=== PATIENT | female | born 1985 | race Caucasian/White ===

== ENCOUNTER 2017-04-16 14:07 | Emergency (ER) | payer OTHER ==
[~2017-04-16] VITALS: Ht 157.5 cm; Wt 129.3 kg
--- NOTE | ~2017-04-16 | EKG ---
PATIENT: MAXI RIVAS UNIT #: [id number] Ventricular Rate: 59 BPM Atrial Rate: 59 BPM P-R Interval: 148 ms QRS Duration: 90 ms Q-T Interval: 416 ms QTC Calculation(Bezet): 411 ms P [place]: 37 degrees Calculated R [place]: 71 degrees Calculated T [place]: 34 degrees Diagnosis Line: Sinus bradycardia Diagnosis Line: Cannot rule out Anterior infarct , age Diagnosis Line: undetermined Diagnosis Line: Abnormal ECG Diagnosis Line: When compared with ECG of 06-MAY-2010 17:45, Diagnosis Line: Vent. rate has decreased BY 40 BPM Diagnosis Line: Confirmed by BRIGID ROMAN MD ([id number]) on Diagnosis Line: 04/19/2017 4:04:03 PM INTERPRETING MD: JESSIE BLANCO
[~2017-04-16 14:07] MED LIST: ALBUTEROL; ALBUTEROL17 GM; ALBUTEROL17 GM INH; AMITRIPTYLINE H25 MG; AMOXICILLIN; AUGMENTIN PO; BENICAR20 MG PO; BENTYL20 MG PO; CIPRO; CLARITIN10 M3 PO; FLEXERIL10 MG PO; FLOMAX0.4 M1; FLONASE 0.05% N16 G1; FLOVENT7.9 GM NS; LORTAB 7.5-5001 TAB PO; MULTIVITAMIN1 UDCAP PO; NAPROXEN PO; PERCOCET7.5; PHENERGAN25 M1 PO; PREDNISONE; SENNA S TABLET1 TAB PO; SINGULAIR PO; SYMBICORT IH; SYMBICORT INH; VICODIN 5/500 T1 TAB PO; VOLTAREN75 MG PO; ZITHROMAX PO; ZOFRAN; ZYRTEC PO; [UNRECOGNIZED DRUG - REMARK]
[2017-04-16] MEDS ORDERED: ZYRTEC10 M1 PO (14:38)
[2017-04-16] MEDS ORDERED: PRINIVIL20 M1 PO (14:38)
[2017-04-16 15:21] LABS: BASOPHIL# 0.1 X10e3 (0-0.3); BASOPHIL% 1.4 % (0-2.5); EOSINOPHIL% 0.6 % (0.0-7.0); HEMATOCRIT 38.3 % (35.0-45.0); HEMOGLOBIN 12.6 gm/dL (12.0-16.0); LYMPHOCYTE# 1.5 X10e3 (1.0-3.5); LYMPHOCYTE% 24.5 % (17.0-45.0); MEAN CELL VOLUME 74.1 FL (83-96); MEAN CORPUSCULAR HEMOGLOBIN 24.3 PG (28-34); MEAN CORPUSCULAR HGB CONC 32.9 g/dL (30-36); MEAN PLATELET VOLUME 9.8 FL (6.5-11.5); MONOCYTE# 0.5 X10e3 (0-1.0); MONOCYTE% 7.8 % (3.0-12.0); NEUTROPHIL# 4.1 X10e3 (1.5-7.1); NEUTROPHIL% 65.7 % (40-75); PLATELET COUNT 195 X10e3 (140-420); RED BLOOD COUNT 5.17 X10e (3.90-5.30); RED CELL DISTRIBUTION WIDTH 15.1 % (11.0-15.5); WHITE BLOOD COUNT 6.3 X10e3 (4.0-10.5)
[2017-04-16 15:22] LABS: DIFF IND NO
[2017-04-16 15:39] LABS: BILIRUBIN,TOTAL 0.2 mg/dL (0.2-2.0); BUN/CREATININE RATIO 17.5; CALCIUM SERUM 8.8 mg/dL (8.4-10.2); CREATININE SERUM 0.8 mg/dL (0.6-1.4); GLOM FILT RATE Estimated 97.6 mL/min (>60); POTASSIUM 3.7 mmol/L (3.5-5.1); PROTEIN TOTAL SERUM 6.8 g/dL (6.0-8.3)
[2017-04-16 15:49] LABS: THYROID STIMULATING HORMONE 0.53 uIU/ml (0.34-5.60)
[2017-04-17 00:44] LABS: FREE THYROXIN (T4) 0.71 ng/dL (0.58-1.64)
== END 2017-04-16 17:14 | disposition home or self-care (01) ==
LOC: SED 14:07
PROVIDERS: Emergency Medicine
DX: R55 Syncope and collapse (principal); Z88.1 Allergy status to other antibiotic agents; Z88.2 Allergy status to sulfonamides; Z79.899 Other long term (current) drug therapy
CPT/HCPCS: 36415; 80053; 82947; 84439; 84443; 84703; 85025; 93005; 99284

== ENCOUNTER 2017-04-22 19:46 | Emergency (ER) | payer OTHER ==
[~2017-04-22] VITALS: Ht 157.5 cm; Wt 129.3 kg
--- NOTE | ~2017-04-22 | CT71 ---
[facility] A Service of [facility] RADIOLOGY TEXT RESULTS PATIENT: MAXI RIVAS LOCATION: [facility] : 85 UNIT #: [id number] AGE: [address]: Connor Peguero MD SEX: F ORDER DR: [id number] [place] [id number] [facility]. [place], [place] [address] [id number] E MR#: [id number] #: [id number] NAME: MAXI RIVAS : 1985 SEX: F STUDY DATE/TIME: 04/22/2017 21:43 UNIT: [facility] ROOM: STUDY DESCRIPTION: CT Head Wo Contrast Attending Physician: Connor Peguero M.D. Ordering Physician: Connor Peguero M.D. Primary Care Physician: Lillie Cardenas Aprn MEDICAL IMAGING REPORT This report is preliminary unless electronic signature is present EXAM Head CT no contrast, 04/22/2017 INDICATION 32-year-old female with a syncopal episode, hit head. Head and back pain since April 16. Syncopal episode again today. Hit the back of the head, dizziness. TECHNIQUE Noncontrast CT brain. This CT exam was performed with one or more of the following radiation dose reduction techniques: automatic exposure control, adjustment of mA and/or kV according to patient size, and iterative reconstruction. COMPARISON 08/18/[address] BRAIN: Sulci and ventricles unremarkable. No midline shift. No evidence of acute intracranial hemorrhage. There is no mass, mass effect or edema to suggest acute infarct and no extraaxial fluid collections are present. Globes intact. Bones intact. There is a small retention cyst or polyp in the left maxillary sinus. IMPRESSION 1. No clearly acute intracranial process. No evidence of acute intracranial hemorrhage. 2. Incidental retention cyst or polyp in the left maxillary sinus. Dictated by... Jules Diaz M.D. [facility] A Service of [facility] [place] [place] RADIOLOGY TEXT RESULTS PATIENT: MAXI RIVAS LOCATION: [place] : 85 UNIT #: [id number] AGE: [address]: Connor Peguero MD SEX: F ORDER DR: THIS IS AN ELECTRONICALLY VERIFIED REPORT Jules Diaz M.D. at 04/23/2017 11:28 AM Alanis TD: 04/23/2017 08:03 JOB #: [id number] MEDICAL IMAGING REPORT Page 1 of 1 COPY
--- NOTE | ~2017-04-22 | EKG ---
PATIENT: MAXI RIVAS UNIT #: [id number] Ventricular Rate: 74 BPM Atrial Rate: 74 BPM P-R Interval: 150 ms QRS Duration: 88 ms Q-T Interval: 386 ms QTC Calculation(Bezet): 428 ms P [place]: 38 degrees Calculated R [place]: 69 degrees Calculated T [place]: 28 degrees Diagnosis Line: Normal sinus rhythm Diagnosis Line: Normal ECG Diagnosis Line: Diagnosis Line: Confirmed by MACIEL PRUITT MD ([id number]) on 04/23/2017 Diagnosis Line: 4:52:40 PM INTERPRETING MD: EDMOND BLANCO
--- NOTE | ~2017-04-22 | CR72 ---
[facility] A Service of [facility] RADIOLOGY TEXT RESULTS PATIENT: MAXI RIVAS LOCATION: [facility] : 85 UNIT #: [id number] AGE: [address]: Connor Peguero MD SEX: F ORDER DR: [id number] [facility] [address] [facility]. [place], [place] [address] [id number] E MR#: [id number] Acc #: [id number] NAME: MAXI RIVAS : 1985 SEX: F STUDY DATE/TIME: 04/22/2017 20:52 UNIT: [facility] ROOM: STUDY DESCRIPTION: CR Chest Single View Portable Attending Physician: Connor Peguero M.D. Ordering Physician: Connor Peguero M.D. Primary Care Physician: Lillie Cardenas Aprn MEDICAL IMAGING REPORT This report is preliminary unless electronic signature is present EXAM Frontal chest, 04/22/2017 INDICATIONS 32-year-old female with a history of syncopal episode 6 days ago, shortness of air with activity; symptoms began 6 days ago, as well. Hypertension. TECHNIQUE Frontal chest compared with 08/05/2012. FINDINGS Cardiac silhouette is within normal limits. Vascularity normal. Lung volumes are low but the lungs are clear. No pneumothorax. IMPRESSION 1. Low lung volumes, otherwise negative frontal chest. Dictated by... Jules Diaz M.D. THIS IS AN ELECTRONICALLY VERIFIED REPORT Jules Diaz M.D. at 04/23/2017 11:28 AM Maral TD: 04/23/2017 03:41 JOB #: [id number] MEDICAL IMAGING REPORT Page 1 of 1 COPY
[~2017-04-22 19:46] MED LIST changes: +PRINIVIL20 M1 PO; +ZYRTEC10 M1 PO
[2017-04-22 21:00] LABS: BASOPHIL# 0.1 X10e3 (0-0.3); BASOPHIL% 0.7 % (0-2.5); EOSINOPHIL# 0.1 X10e3 (0-0.7); EOSINOPHIL% 1.4 % (0.0-7.0); HEMATOCRIT 39.6 % (35.0-45.0); HEMOGLOBIN 12.7 gm/dL (12.0-16.0); LYMPHOCYTE# 2.2 X10e3 (1.0-3.5); LYMPHOCYTE% 21.9 % (17.0-45.0); MEAN CELL VOLUME 74.6 FL (83-96); MEAN CORPUSCULAR HGB CONC 32.2 g/dL (30-36); MEAN PLATELET VOLUME 9.9 FL (6.5-11.5); MONOCYTE# 0.7 X10e3 (0-1.0); MONOCYTE% 7.3 % (3.0-12.0); NEUTROPHIL# 6.9 X10e3 (1.5-7.1); NEUTROPHIL% 68.7 % (40-75); PLATELET COUNT 198 X10e3 (140-420); RED CELL DISTRIBUTION WIDTH 14.7 % (11.0-15.5); WHITE BLOOD COUNT 10.1 X10e3 (4.0-10.5)
[2017-04-22 21:03] LABS: DIFF IND NO
[2017-04-22 21:03] LABS: POC - CKMB 1.2 ng/mL (0.0-7.9); POC - TROPONIN <0.05 ng/mL (<=0.05)
[2017-04-22 21:12] LABS: URINE SOURCE CLEAN CATCH
[2017-04-22 21:20] LABS: URINE APPEARANCE CLEAR; URINE BILIRUBIN NEG (NEG); URINE BLOOD NEG (NEG); URINE COLOR YELLOW; URINE GLUCOSE NEG (NEG); URINE KETONE NEG (NEG); URINE LEUKOCYTE ESTERASE NEG (NEG); URINE NITRATE NEG (NEG); URINE PH 5.5 (5-8); URINE PROTEIN NEG (NEG); URINE SPECIFIC GRAVITY 1.021 (1.003-1.035); URINE UROBILINOGEN 0.2 MG/DL (NEG)
[2017-04-22 21:22] LABS: ALBUMIN SERUM 4.3 g/dL (3.5-5.0); ALCOHOL BLOOD <5 mg/dL ([, 0]); ALKALINE PHOSPHATASE 60 U/L (32-92); ALT (SGPT) 14 U/L (10-40); AST (SGOT) 17 U/L (10-42); BILIRUBIN, DIRECT <0.1 mg/dL (0.0-0.2); BILIRUBIN,INDIRECT 0.3 mg/dL (0.0-0.9); BILIRUBIN,TOTAL 0.4 mg/dL (0.2-2.0); BLOOD UREA NITROGEN 15 mg/dL (9-23); BUN/CREATININE RATIO 18.75; CALCIUM SERUM 9.4 mg/dL (8.4-10.2); CARBON DIOXIDE 28 mmol/L (22-31); CHLORIDE 105 mmol/L (100-111); CREATININE SERUM 0.8 mg/dL (0.6-1.4); GLOM FILT RATE Estimated 97.6 mL/min (>60); GLUCOSE FASTING 98 mg/dL (70-110); POTASSIUM 3.6 mmol/L (3.5-5.1); PROTEIN TOTAL SERUM 7.2 g/dL (6.0-8.3); SODIUM 139 mmol/L (135-145)
[2017-04-22 21:23] LABS: CULTURE INDICATED? NO
[2017-04-22 21:24] LABS: PARTIAL THROMBOPLASTIN TIME 25.1 SECONDS (23.5-31.3); PROTHROMBIN TIME (PATIENT) 10.4 SECONDS (10.0-11.7)
[2017-04-22 21:30] LABS: AMPHETAMINE NEG (NEG); BARBITURATES NEG (NEG); BENZODIAZEPINES NEG (NEG); COCAINE NEG (NEG); MARIJUANA NEG (NEG); OPIATES NEG (NEG); TRICYCLIC ANTIDEPRESSANTS NEG (NEG); U METHADONE NEG (NEG)
[2017-04-22 22:39] LABS: POC - CKMB <1.0 ng/mL (0.0-7.9); POC - TROPONIN <0.05 ng/mL (<=0.05)
== END 2017-04-22 23:16 | disposition home or self-care (01) ==
LOC: CED 19:46 → CFTX 20:59 → CED 20:59
PROVIDERS: Emergency Medicine
DX: R55 Syncope and collapse (principal); R42 Dizziness and giddiness; I10 Essential (primary) hypertension; Z88.1 Allergy status to other antibiotic agents; Z88.2 Allergy status to sulfonamides; Z88.8 Allergy status to other drugs, medicaments and biological substances
CPT/HCPCS: 70450; 71010; 80048; 80076; 80307; 81003; 82553; 84484; 84703; 85025; 85610; 85730; 93005; 96360; 99285; G0480

== ENCOUNTER → 2017-04-23 | Outpatient (CLI) | payer OTHER ==
--- NOTE | ~2017-04-23 | HM ---
Unit #: [id number] #: [id number] Patient: MAXI RIVAS [id number] [facility] [address], [place] [address] [id number] O MR#: [id number] NAME: MAXI RIVAS : 1985 SEX: F STUDY DATE/TIME: 04/23/2017 UNIT: [facility] ROOM: STUDY DESCRIPTION: Attending Physician: Connor Peguero M.D. CARDIOLOGY REPORT EXAM 24-hour Holter monitor. DATE APPLIED 04/23/2017 DATE SCANNED 04/29/2017 READ BY [facility]. ORDERED BY Dr. Peguero. REASON FOR STUDY Syncope. FINDINGS Underlying rhythm is sinus rhythm with an average heart rate of 70 beats per minute, minimum heart rate of 40 beats per minute, and a maximum heart rate of 132 beats per minute. The minimum heart rate of 40 beats per minute is noted at 7:57 a.m. The maximum heart rate of 132 beats per minute is noted at 9:58 a.m. The patient had a 1.64 second pause noted at 9:52 p.m. The patient had 91 single premature ventricular complexes and two ventricular couplets noted. The patient had nine single premature atrial complexes noted. Patient recorded several symptoms of lightheadedness while walking, sitting, and watching TV; all of which correlated with normal sinus rhythm. Patient recorded complaints of fluttering which also correlated with normal sinus rhythm. CONCLUSION 1. Underlying rhythm is normal sinus rhythm with an average heart rate of 70 beats per minute, minimum heart rate of 40 beats per minute, and a maximum heart rate of 132 beats per minute. 2. No sustained atrial or ventricular arrhythmias noted. 3. No significant pauses noted. 4. Occasional single multifocal premature ventricular complex noted. 5. Two ventricular couplets noted. 6. Patient recorded symptoms of dizziness and fluttering which correlated with normal sinus rhythm. Unit #: [id number] #: [id number] Patient: MAXI RIVAS Dictated by... Cony Rios TD: 04/29/2017 16:04 JOB #: [id number] CC: Connor Peguero M.D. CARDIOLOGY REPORT Page 1 of 1 X Ruma Hendricks MD <ELECTRONICALLY SIGNED> 06/03/17 1524 HOLTER MONITOR REPORT
== END | disposition home or self-care (01) ==
LOC: CEKG 10:58
DX: R55 Syncope and collapse (principal)
CPT/HCPCS: 93225; 93226

== ENCOUNTER 2017-04-29 12:28 | Emergency (ER) | payer OTHER ==
[~2017-04-29] VITALS: Ht 157.5 cm; Wt 129.3 kg
--- NOTE | ~2017-04-29 | EKG ---
PATIENT: MAXI RIVAS UNIT #: [id number] Ventricular Rate: 68 BPM Atrial Rate: 68 BPM P-R Interval: 120 ms QRS Duration: 94 ms Q-T Interval: 396 ms QTC Calculation(Bezet): 421 ms P [place]: 25 degrees Calculated R [place]: 75 degrees Calculated T [place]: 35 degrees Diagnosis Line: Normal sinus rhythm Diagnosis Line: Normal ECG Diagnosis Line: When compared with ECG of 22-APR-2017 21:00, Diagnosis Line: No significant change was found Diagnosis Line: Confirmed by MACIEL PRUITT MD ([id number]) on 04/29/2017 Diagnosis Line: 6:58:09 PM INTERPRETING MD: EDMOND BLANCO
--- NOTE | ~2017-04-29 | CT16 ---
[facility] A Service of [facility] RADIOLOGY TEXT RESULTS PATIENT: MAXI RIVAS LOCATION: [facility] : 85 UNIT #: [id number] AGE: [address]: Tyler Sen MD SEX: F ORDER DR: [id number] [facility] [address] [place], [place] [address] [id number] E MR#: [id number] Acc #: [id number] NAME: MAXI RIVAS : 1985 SEX: F STUDY DATE/TIME: 04/29/2017 18:12 UNIT: [facility] ROOM: STUDY DESCRIPTION: CT Angio Chest for PE Attending Physician: Wing Sen M.D. Ordering Physician: Edmond Daly M.D. Primary Care Physician: Lillie Cardenas Aprn MEDICAL IMAGING REPORT This report is preliminary unless electronic signature is present EXAM CT angio chest for PE. HISTORY Syncope with chest pain at 9:30 today, shortness of breath, chest tightness. History of hypertension. TECHNIQUE CT chest performed axial plane during the intravenous administration of 100 mL of Isovue-370. This was followed by 3-D coronal MIP reconstructed images for the purpose of CT pulmonary angiography. This CT exam was performed with one or more of the following radiation dose reduction techniques: automatic exposure control, adjustment of mA and/or kV according to patient size, and iterative reconstruction. COMPARISON There is a earlier chest x-ray from 04/22/2017. FINDINGS There is no evidence for thoracic aortic dissection. Patient is post cholecystectomy. No axillary, mediastinal, or hilar lymphadenopathy. No pleural or pericardial effusion. No pulmonary embolism. No pneumothorax. Minimal atelectasis at the right base. Minimal atelectasis at the left base. No congestive failure. Mild cardiac enlargement overall for age group. IMPRESSION 1. No evidence for pulmonary embolism, pleural or pericardial effusion or thoracic aortic dissection. No pneumothorax. Only minor dependent atelectasis seen. 2. Mild cardiac enlargement overall for age group. [facility] A Service of [facility] RADIOLOGY TEXT RESULTS PATIENT: MAXI RIVAS LOCATION: [facility] : 85 UNIT #: [id number] AGE: [address]: Tyler Sen MD SEX: F ORDER DR: Dictated by... Akilah Sy M.D. THIS IS AN ELECTRONICALLY VERIFIED REPORT Akilah Sy M.D. at 04/30/2017 10:23 AM PANTERA/ramses TD: 04/30/2017 09:16 JOB #: [id number] MEDICAL IMAGING REPORT Page 1 of 1 COPY
[2017-04-29 14:26] LABS: URINE SOURCE CLEAN CATCH
[2017-04-29 14:33] LABS: URINE APPEARANCE CLOUDY; URINE BILIRUBIN NEG (NEG); URINE BLOOD NEG (NEG); URINE COLOR YELLOW; URINE GLUCOSE NEG (NEG); URINE KETONE NEG (NEG); URINE LEUKOCYTE ESTERASE NEG (NEG); URINE NITRATE NEG (NEG); URINE PH 8.5 (5-8); URINE PROTEIN NEG (NEG); URINE SPECIFIC GRAVITY 1.016 (1.003-1.035); URINE UROBILINOGEN 0.2 MG/DL (NEG)
[2017-04-29 14:46] LABS: CULTURE INDICATED? NO
[2017-04-29 15:17] LABS: BASOPHIL# 0.1 X10e3 (0-0.3); BASOPHIL% 0.9 % (0-2.5); EOSINOPHIL# 0.1 X10e3 (0-0.7); EOSINOPHIL% 1.4 % (0.0-7.0); HEMATOCRIT 38.5 % (35.0-45.0); HEMOGLOBIN 12.5 gm/dL (12.0-16.0); LYMPHOCYTE# 1.8 X10e3 (1.0-3.5); MEAN CELL VOLUME 74.6 FL (83-96); MEAN CORPUSCULAR HEMOGLOBIN 24.3 PG (28-34); MEAN CORPUSCULAR HGB CONC 32.5 g/dL (30-36); MEAN PLATELET VOLUME 9.6 FL (6.5-11.5); MONOCYTE# 0.5 X10e3 (0-1.0); NEUTROPHIL# 4.3 X10e3 (1.5-7.1); NEUTROPHIL% 63.7 % (40-75); PLATELET COUNT 191 X10e3 (140-420); RED BLOOD COUNT 5.16 X10e (3.90-5.30); RED CELL DISTRIBUTION WIDTH 15.3 % (11.0-15.5); WHITE BLOOD COUNT 6.7 X10e3 (4.0-10.5)
[2017-04-29 15:18] LABS: DIFF IND NO
[2017-04-29 15:36] LABS: POC - TROPONIN <0.05 ng/mL (<=0.05)
[2017-04-29 15:39] LABS: ALKALINE PHOSPHATASE 56 U/L (32-92); ALT (SGPT) 12 U/L (10-40); AST (SGOT) 15 U/L (10-42); BILIRUBIN,TOTAL 0.3 mg/dL (0.2-2.0); BLOOD UREA NITROGEN 16 mg/dL (9-23); BUN/CREATININE RATIO 22.85; CALCIUM SERUM 9.3 mg/dL (8.4-10.2); CARBON DIOXIDE 26 mmol/L (22-31); CHLORIDE 106 mmol/L (100-111); CREATININE SERUM 0.7 mg/dL (0.6-1.4); GLOM FILT RATE Estimated 114.6 mL/min (>60); GLUCOSE FASTING 93 mg/dL (70-110); PROTEIN TOTAL SERUM 6.9 g/dL (6.0-8.3); SODIUM 138 mmol/L (135-145)
[2017-04-29 15:42] LABS: BILIRUBIN, DIRECT <0.1 mg/dL (0.0-0.2); BILIRUBIN,INDIRECT 0.2 mg/dL (0.0-0.9)
== END 2017-04-29 21:30 | disposition home or self-care (01) ==
LOC: CED 12:28
DX: R55 Syncope and collapse (principal); Z90.49 Acquired absence of other specified parts of digestive tract
CPT/HCPCS: 36415; 71275; 80048; 80076; 81003; 82553; 84484; 84703; 85025; 93005; 99284; Q9967